=== PATIENT | female | born 1995 | race Hispanic/Latino ===

== ENCOUNTER 2019-03-13 04:09 | Emergency (ER) | payer BC ==
[2019-03-13] MEDS ORDERED: Ibuprofen 800 MG TAB ONE (04:41)
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
== END 2019-03-13 06:08 | disposition home or self-care (01) ==
LOC: ERS 04:09
DX: S32.465A Nondisplaced associated transverse-posterior fracture of left acetabulum, initial encounter for closed fracture (principal); F17.210 Nicotine dependence, cigarettes, uncomplicated; V43.62XA Car passenger injured in collision with other type car in traffic accident, initial encounter
CPT/HCPCS: 72170; 72192